=== PATIENT | female | born 1940 | race Caucasian/White ===

== ENCOUNTER → 2016-12-05 | Outpatient (REF) ==
[~2016-12-05] MED LIST: AZO-STANDARD95 MG PO; B-12250 MCG; CEPHALEXIN500 M1 PO; CYMBALTA 30MG30 MG PO; DESYREL 50MG50 MG; HCTZ12.5TAB PO; LEVOXYL0.125 MG PO; LIPI MAX1 SGL; MALIC ACID; MOTRIN 200200 MG/TAB PO; NAPROSYN500 MG PO; NORVASC 5MG5 MG/TAB PO; PLAQUENIL 200M200 MG PO; PREMARIN .3MG0.3 MG PO; PRINZIDE 12.5 M1 TAB PO; SEPTRA DS 8001 TAB PO; TIROSINT150 MCG PO; TYLENOL 325MG325 MG PO; ULTRAM 50MG TAB50 MG PO; ULTRAM ER200 MG PO; VITAMIN C PUR1000 MG PO; VITAMIN D32000 IU; Z-BEC1 TAB; ZESTRIL 20MG TA20 MG PO; ZESTRIL 5MG5 MG
== END ==
LOC: ZLAB.WCH 23:26
DX: Z01.89 Encounter for other specified special examinations (principal)

== ENCOUNTER → 2017-03-31 | Outpatient (REF) | LOC: ZLAB.WCH 18:04 | DX: Z01.89 Encounter for other specified special examinations (principal) ==

== ENCOUNTER → 2017-06-12 | Outpatient (REF) ==
[2017-06-12 18:51] LABS: THYROID STIMULATING HORMONE 0.239 uIU/mL (0.465-4.680)
== END ==
LOC: ZLAB.WCH 18:01
PROVIDERS: Internal Medicine
DX: Z01.89 Encounter for other specified special examinations (principal)

== ENCOUNTER → 2017-08-14 | Outpatient (REF) | LOC: ZLAB.WCH 12:05 | DX: Z01.89 Encounter for other specified special examinations (principal) ==

== ENCOUNTER → 2017-09-26 | Outpatient (REF) | LOC: ZLAB.WCH 18:04 | DX: Z01.89 Encounter for other specified special examinations (principal) ==

== ENCOUNTER → 2018-03-28 | Outpatient (REF) ==
[2018-03-28 11:41] LABS: C-REACTIVE PROTEIN 0.7 mg/dL (0.0-0.9)
[2018-03-28 12:16] LABS: THYROID STIMULATING HORMONE 0.32 uIU/mL (0.465-4.680)
== END ==
LOC: ZLAB.WCH 11:24
PROVIDERS: Internal Medicine
DX: Z01.89 Encounter for other specified special examinations (principal)

== ENCOUNTER 2018-05-05 08:34 | Outpatient (CLI) | payer MEDICARE, BC ==
[~2018-05-05] VITALS: Ht 162.6 cm; Wt 87.2 kg
[~2018-05-05 08:34] MED LIST changes: +ANTIVERT 25MG25 MG PO; +AZO-CRANBERRY450 MG PO; +COREG 6.256.25 MG/TA PO; +DELSYM30 MG/5 ML PO; +FLONASEALLERGY NS; +PROAIR HFA0.09 MG/AC IH; +SINGULAIR 110 MG/TAB PO; +SYNTHROID0.112 MG/T PO
[2018-05-05 09:03] VITALS: BP 164/94; PULSE 82
[2018-05-05 10:20] VITALS: BP 154/88; PULSE 81
[2018-05-05 10:25] VITALS: BP 154/88; PULSE 81
[2018-05-05 10:50] VITALS: BP 143/71; PULSE 76; TEMP 97.5
[2018-05-05 11:20] VITALS: BP 152/77; PULSE 73; TEMP 97.9
[2018-05-05 13:00] VITALS: BP 154/72; PULSE 79; TEMP 97.9
== END 2018-05-05 13:00 | disposition home or self-care (01) ==
LOC: COL.RAD 08:34
DX: G91.2 (Idiopathic) normal pressure hydrocephalus (principal)
CPT/HCPCS: A9548

== ENCOUNTER → 2018-06-09 | Outpatient (CLI) | payer BC ==
[~2018-06-09] VITALS: Ht 162.6 cm; Wt 87.2 kg
[~2018-06-09] MED LIST changes: +LASIX 20MG TABL20 MG PO
[2018-06-09 09:53] VITALS: BP 171/84; PULSE 86
[2018-06-09 11:30] VITALS: BP 149/83; PULSE 71
[2018-06-09 11:45] VITALS: BP 138/68; PULSE 73
[2018-06-09 12:00] VITALS: BP 130/76; PULSE 77
[2018-06-09 12:11] LABS: GLUCOSE,CSF 57 mg/dL (40-70); TOTAL PROTEIN,CSF 66 mg/dL (15-45)
[2018-06-09 12:15] VITALS: BP 135/79; PULSE 80
[2018-06-09 12:30] VITALS: BP 164/89; PULSE 71
[2018-06-10 06:09] LABS: CSF APPEARANCE CLEAR; CSF COLOR COLORLESS
[2018-06-10 06:10] LABS: CSF MONONUCLEAR 100 % (70-100); CSF POLYMORPHONUCLEAR 0 % (0-6); CSF RBC 5 /mm3 (0-0)
[2018-06-11 13:29] LABS: ALBUMIN CSF 28.5 mg/dL (<=27.0); CSF IGG/ALBUMIN 0.13 (<=0.21); CSF,IGG 3.6 mg/dL (<=8.1)
[2018-06-11 13:45] LABS: ALBUMUN SERUM 4550 mg/dL (()); CSF SYNTHESIS RATE 4.35 mg/24 h (<=12); CSF-IGG INDEX 0.68 (<=0.85); IGG,SERUM 886 mg/dL (()); IGG/ALBUMIN SERUM 0.19 (<=0.40)
[2018-06-11 14:16] LABS: VDRL-CSF Negative (Negative)
[2018-06-11 16:04] LABS: CSF OLIG BD INTERPRETATION 2 bands (<4); CSF OLIGOCLONAL BANDING 2 bands (()); SE OLIGOCLONAL BANDING 0 bands (())
== END ==
LOC: COL.RAD 09:29
PROVIDERS: Internal Medicine
DX: G91.2 (Idiopathic) normal pressure hydrocephalus (principal); M34.1 CR(E)ST syndrome; N39.46 Mixed incontinence; R26.0 Ataxic gait; R41.3 Other amnesia